=== PATIENT | male | born 1950 | race African-American/Black ===

== ENCOUNTER 2018-07-28 12:58 | Inpatient (IN) | payer BC, MEDICARE ==
[~2018-07-28] VITALS: Ht 177.8 cm; Wt 114.0 kg
[2018-07-28 13:28] LABS: Basophils # (auto) 0 uL; Basophils % (auto) 0.9 % (0.0-2.0); Eosinophils # (auto) 0.1 uL; Eosinophils % (auto) 2.7 % (0.0-7.0); Hematocrit 43.8 % (41.0-53.0); Hemoglobin 14.4 g/dL (13.5-17.5); Lymphocytes # (auto) 1.7 uL; Lymphocytes % (auto) 39.7 % (10.0-50.0); Mean Corpuscular Hemoglobin 30.1 pg (28.0-32.0); Mean Corpuscular Hgb Conc. 32.9 g/dL (32.0-36.0); Mean Corpuscular Volume 91.2 fL (80.0-100.0); Monocytes # (auto) 0.5 uL; Monocytes % (auto) 10.6 % (0.0-12.0); Neutrophils % (auto) 46.1 % (37.0-80.0); Nucleated Red Blood Cells % 0.3 %; Platelet Count (auto) 238 10^3/uL (140-450); Red Cell Distribution Width 16.5 % (11.8-14.3); White Blood Cell 4.4 10^3/uL (4.4-10.8)
[2018-07-28 13:38] LABS: Anion Gap 5 (5-15); Blood Urea Nitrogen 15 mg/dL (7-18); Calcium 9.5 mg/dL (8.5-10.1); Carbon Dioxide 29 mmol/L (21-32); Chloride 105 mmol/L (98-107); Glucose 96 mg/dL (74-106); Potassium 4.4 mmol/L (3.5-5.1); Sodium 139 mmol/L (136-145)
[2018-07-28 13:39] LABS: Albumin 4.1 g/dL (3.4-5.0)
[2018-07-28 13:44] LABS: Alanine Aminotransferase 24 U/L (16-61); Alkaline Phosphatase 46 U/L (45-117); Aspartate Aminotransferase 25 U/L (15-37); BUN/Creatinine Ratio 10.7; Bilirubin, Total 1.1 mg/dL (0.2-1.0); GFR African American 65 mL/min; GFR Non-African American 54 mL/min; Total Protein 8.2 g/dL (6.4-8.2)
[2018-07-28] MEDS ORDERED: ASPirin 81 mg TAB PO ONE (14:30)
[2018-07-28] MEDS ORDERED: NITROGLYCERIN 0.4 MG SL TAB SL ONE (14:30)
[2018-07-28] MEDS ORDERED: DEXTROSE (50%) 50ML SYRG IV PRN (17:30)
[2018-07-28] MEDS ORDERED: ONDANSETRON HCL 4 MG/2 ML VIAL IV PRN (17:30)
[2018-07-28] MEDS ORDERED: HYDROcodone-ACET 5/325MG TAB PO PRN (17:30)
[2018-07-28] MEDS ORDERED: NITROGLYCERIN 0.4 MG SL TAB SL PRN (17:30)
[2018-07-28] MEDS ORDERED: MORPHINE SULF INJ 2 MG/ML SYRINGE 1ML IV PRN ×2 (17:30)
--- NOTE | 2018-07-28 19:43 | NUR ---
Admission Note Pt admitted to room 280-B in stable cond. Pt oriented to room and procedures and POC discussed with pt. Pt verbalizes understanding. Pt denies any CP or SOB at this time and no s/s of any distress noted. Bed is low, wheels are locked, and call light is with in reach.
[2018-07-28] MEDS: ACCU-CHEK COMFORT CURVE STRIP VI SCH (22:00)
[2018-07-28] MEDS: InsuLIN REG 1unit/0.01ml Soln (100units/ml) SC SCH (22:00)
[2018-07-28] MEDS ORDERED: METF-370 PO (23:48)
[2018-07-29 05:00] VITALS: BP 145/92
[2018-07-29] MEDS: InsuLIN REG 1unit/0.01ml Soln (100units/ml) SC SCH ×3 (07:00→17:00)
[2018-07-29] MEDS: ACCU-CHEK COMFORT CURVE STRIP VI SCH ×3 (07:04→17:00)
--- NOTE | 2018-07-29 07:20 | NUR ---
Opening Shift Note Assumed care of patient, awake and alert. No S/S of distress/SOB or pain. Instructed on POC and to call for assist PRN, will continue to monitor for changes Q1hr and PRN.
[2018-07-29 08:00] VITALS: BP 109/66
[2018-07-29 08:57] VITALS: BP 142/76
[2018-07-29 12:40] VITALS: BP 118/79
--- NOTE | 2018-07-29 15:13 | NUR ---
Hospitalist paged Left message with Dr. Hoff. Patient asking about discharge, stated he could go home after echo. Addendum: 07/29/18 at 1713 by CHRIST TOMAS RN Received call back; discharge orders placed.
--- NOTE | 2018-07-29 17:00 | NUR ---
Discharge from Tele Discharge instructions given as ordered. Encourage to follow up with PMD as instructed. All questions and concerns addressed. Patient verbalized understanding. Medication reconciliation form completed and copy given to patient. IV removed with catheter intact, pressure dressing applied. Telemetry unit returned to ICU. Patient taken to vehicle via wheelchair with all personal belongings, accompanied by staff and family member. No distress noted at time of departure.
--- NOTE | 2018-07-29 17:54 | NUR ---
Received call from Dr. Plata. aware that patient has been discharged but wants SS consult for home safety evaluation for chart.
--- NOTE | 2018-07-31 09:02 | NUR ---
[facility] to [facility] for this pt since order written after hrs. ss faxed to [facility]
== END 2018-07-29 14:00 | disposition home health service (06) | DRG 313 ==
LOC: ER 13:03 → TELE 17:35 → TELE-WESTW 19:43
PROVIDERS: ADMIT Internal Medicine; ATTEND Internal Medicine
DX: R07.89 Other chest pain (principal); E11.9 Type 2 diabetes mellitus without complications; E66.9 Obesity, unspecified; I10 Essential (primary) hypertension; Z80.0 Family history of malignant neoplasm of digestive organs; Z80.1 Family history of malignant neoplasm of trachea, bronchus and lung; Z83.3 Family history of diabetes mellitus; Z68.36 Body mass index [BMI] 36.0-36.9, adult
CPT/HCPCS: 36415; 71046; 80053; 82962; 84484; 85025; 93005; 93306; 94761; G0378